=== PATIENT | male | born 1985 | race African-American/Black ===

== ENCOUNTER 2019-09-08 13:44 | Emergency (ER) | payer SELFPAY ==
[~2019-09-08] VITALS: Ht 185.4 cm; Wt 108.9 kg
[2019-09-08 14:00] VITALS: BP 137/87
== END 2019-09-08 17:34 | disposition home or self-care (01) ==
LOC: ER 13:46
DX: M72.2 Plantar fascial fibromatosis (principal)

== ENCOUNTER 2020-09-28 07:03 | Emergency (ER) | payer MEDICAID, OTHER ==
[~2020-09-28] VITALS: Ht 185.4 cm; Wt 113.4 kg
[2020-09-28 07:05] VITALS: BP 150/100
== END 2020-09-28 08:49 | disposition home or self-care (01) ==
LOC: ER 07:03
DX: J20.9 Acute bronchitis, unspecified (principal); Z20.828 Contact with and (suspected) exposure to other viral communicable diseases
CPT/HCPCS: 36415; 71045; 87426; 99284; C9803; U0003